=== PATIENT | female | born 2000 | race Caucasian/White ===

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

== ENCOUNTER 2022-09-04 06:10 | Emergency (ER) | payer BC, SELFPAY ==
[2022-09-04 06:13] VITALS: BP 132/83; PULSE 123; RESP 22; TEMP 36.7; O2SAT 100; BMI 31.1
--- NOTE | 2022-09-04 06:40 | CT_ITS ---
PROCEDURE INFORMATION: Exam: CT Head Without Contrast Exam date and time: 09/04/2022 6:57 AM Age: 22 years old Clinical indication: Altered mental status/memory loss; Confusion or disorientation; Additional info: Confusion, zoned out , post flu virus TECHNIQUE: Imaging protocol: Computed tomography of the head without contrast. Radiation optimization: All CT scans at this facility use at least one of these dose optimization techniques: automated exposure control; mA and/or kV adjustment per patient size (includes targeted exams where dose is matched to clinical indication); or iterative reconstruction. COMPARISON: No relevant prior studies available. FINDINGS: Brain: Normal. No hemorrhage. Unremarkable white matter. No mass effect. Cerebral ventricles: No ventriculomegaly. Paranasal sinuses: Mild mucoperiosteal thickening of the paranasal sinuses. Mastoid air cells: Visualized mastoid air cells are well aerated. Bones/joints: Unremarkable. No acute fracture. Soft tissues: Unremarkable. IMPRESSION: Mild mucoperiosteal thickening of the paranasal sinuses but no evidence of acute intracranial pathology.
--- NOTE | 2022-09-04 06:42 | ECG_ITS ---
APPROVED REPORT Exam: Resting ECG HR:92 bpm ECG Measurements Heart Rate 92 AXES ND 153 P 69 QRSd 94 QRS 60 QT 324 T 59 QTc 373 Conclusion SINUS RHYTHM WITH SINUS ARRHYTHMIA NORMAL ECG UNCONFIRMED REPORT Electronically signed by : Edmar eL MD 09/05/2022 09:34:49
[2022-09-04 06:47] LABS: Microscopic, Urine URINE MICROSCOPIC (MICROSCOPIC)
[2022-09-04 06:48] LABS: Appearance,Urine CLEAR (Clear); Bilirubin,Urine Negative (Negative); Blood, Urine 1+ (Negative); Color,Urine YELLOW (Yellow); Glucose,Urine (UA) Negative (Negative); Ketones,Urine Negative (Negative); Leukocyte Esterase,Urine Negative (Negative); Nitrate,Urine Negative (Negative); PH,Urine 5.5 (5.0-8.5); Protein,Urine Negative (Negative); Specific Gravity, Urine >= 1.030 (1.005-1.030); Urobilinogen,Urine 0.2 EU/dl (0.2)
[2022-09-04 06:50] LABS: Urine Pregnancy, HCG Qual. Negative (Negative)
--- NOTE | 2022-09-04 06:58 | XR_ITS ---
PROCEDURE INFORMATION: Exam: XR Chest Exam date and time: 09/04/2022 7:23 AM Age: 22 years old Clinical indication: Shortness of breath; Additional info: Chest tightness TECHNIQUE: Imaging protocol: Radiologic exam of the chest. Views: 2 views. COMPARISON: No relevant prior studies available. FINDINGS: Lungs: Unremarkable. No consolidation. Pleural spaces: Unremarkable. No pleural effusion. No pneumothorax. Heart/Mediastinum: Unremarkable. No cardiomegaly. Bones/joints: Unremarkable. IMPRESSION: No acute findings.
[2022-09-04 07:00] LABS: Bacteria,Urine Trace /lpf; RBC,Urine Occasional #/hpf (0-3); WBC,Urine Occasional #/hpf (0-3)
[2022-09-04 07:01] LABS: Barbiturates Screen,Urine Negative ng/ml (<200)
[2022-09-04 07:02] LABS: Benzodiazepines Screen,Urine Negative ng/ml (<200)
[2022-09-04 07:03] LABS: Amphetamine/Metha Screen,Urine Negative ng/ml (<1000); Methadone Screen,Urine Negative ng/ml (<300)
[2022-09-04 07:04] LABS: Cannabinoid Screen,Urine Negative ng/ml (<50); Cocaine Screen,Urine Negative ng/ml (<300)
[2022-09-04 07:05] LABS: Eosinophils # 0.1 K/mm3 (0.0-0.4); Eosinophils % 2.2 % (0.1-12.0); Hematocrit 41.3 % (37.0-47.0); Hemoglobin 13.8 g/dL (12.2-16.2); Lymphocytes # 1.5 K/mm3 (0.7-4.5); Lymphocytes % 37.8 % (10-50); Mean Corpuscular HGB Conc 33.3 g/dL (31.8-35.4); Mean Corpuscular Hemoglobin 29.6 pg (27.0-31.2); Mean Corpuscular Volume 88.9 fl (81-99); Mean Platelet Volume 7.5 fl (7.4-10.4); Monocytes # 0.2 K/mm3 (0.1-1.0); Monocytes % 5.7 % (1.7-9.3); Neutrophils # 2.1 K/mm3 (1.8-7.8); Neutrophils % 53.3 % (37.0-80.0); Platelet Count 321 K/mm3 (142-424); Red Blood Count 4.65 M/mm3 (4.20-5.40); Red Cell Distribution Width 12.4 % (11.5-17.5); White Blood Count 3.9 K/mm3 (4.8-10.8)
[2022-09-04 07:05] LABS: Opiate Screen,Urine Negative ng/ml (<300)
[2022-09-04 07:06] LABS: Phencyclidine Screen,Urine Negative ng/ml (<25)
[2022-09-04 07:07] LABS: Chloride 107 mmol/L (98-107); Sodium 142 mmol/L (136-145)
[2022-09-04 07:08] LABS: Potassium 3.6 mmoL/L (3.5-5.1)
[2022-09-04 07:10] LABS: Alanine Aminotransferase 16 U/L (12-78); Alkaline Phosphatase 47 U/L (38-126); Anion Gap 13.6 mEq/L (5-15); Aspartate Amino Transferase 22 U/L (14-36); Bilirubin,Direct 0.1 mg/dl (0.0-0.4); Bilirubin,Indirect 0.4 mg/dL (0.0-0.9); Bilirubin,Total 0.5 mg/dl (0.2-1.3); Bilirubin,Unconjugated 0.4 mg/dL (0.0-1.1); Blood Urea Nitrogen 9 mg/dl (7-17); Carbon Dioxide 25 mmol/L (22.0-30.0); Creatinine Clearance Estimated 131 mL/min (50-200); Estimated Glomerular Filt Rate 91 ml/min (>60); GFR (African American) 110 ML/MIN (>60)
[2022-09-04 07:11] LABS: Albumin Level 4.7 g/dl (3.5-5.0); Calcium 9.6 mg/dl (8.4-10.2); Glucose 94 mg/dl (74-100); Magnesium 1.9 mg/dl (1.6-2.3); Total Protein,Serum 7.9 g/dl (6.3-8.2)
[2022-09-04 07:12] VITALS: BP 105/65; PULSE 80; O2SAT 97
[2022-09-04 07:28] LABS: T4 (Thyroxine) 13.8 ug/dl (5.53-11.0); Troponin I < 0.01 ng/ml (0.00-0.034)
[2022-09-04 07:30] VITALS: BP 109/65; PULSE 81; O2SAT 99
[2022-09-04 07:42] LABS: Thyroid Stimulating Hormone 4.89 uIU/mL (0.465-4.68)
--- NOTE | 2022-09-04 07:46 | PC.NURSE ---
Rounded on patient. patient sitting up on side of stretcher talking with friend. She reports no needs at this time. Call light within reach
--- NOTE | 2022-09-04 07:52 | [facility].EDANX ---
Discharge Plan Disposition Patient Disposition: Home, Self-Care Prescriptions Prescriptions: New escitalopram oxalate [Lexapro] 10 mg tablet 10 mg PO DAILY Qty: 14 0RF No Action buspirone [BuSpar] 5 mg Tablet 5 mg PO TID PRN (Reason: anxitey) Referrals Follow up/Referrals: Mone Kendall PA [Primary Care Provider] - See instructions Clinical Impressions Clinical Impression: Acute anxiety Instructions Patient Instructions: Anxiety Disorders Discharge ED Provider: Bryan Adkins Anxiety HPI General Chief Complaint: Anxiety Stated Complaint: Shaking,nausea,anxiety,feels like zoning out Time Seen by Provider: 09/04/22 07:52 Mode of Arrival: Family Vehicle Source of Information: Patient, Significant Other and Medical Record Limitations: No Limitations Description of Symptoms (Recalled from ER Triage Doc. by RN): Pt c/o 5 days of feeling zoned out , anxiety, heart racing, feeling confused , and chest tightness that makes me yawn . Pt also reports she was dx with flu about 1.5 wk ago. She does have a hx of anxitey and bipolarism and takes Buspar 5 mg TIDP. She denies any cough, SOA, vision changes, or n/v/d. History of Present Illness HPI narrative: over the last week has increased anxiety with hx of same - no other c/o at this time - MD complaint: anxiety and shortness of breath Onset (ago): hour(s) Symptoms: perioral numbness/tingling Severity: moderate Place: home History of similar episodes: Yes Provoking factors: emotional stress Related Data Home Medications Medication Instructions Recorded Confirmed buspirone 5 mg tablet 5 mg PO TID PRN anxitey 09/04/22 09/04/22 Previous Rx's Medication Instructions Recorded escitalopram oxalate 10 mg tablet 10 mg PO DAILY #14 tabs 09/04/22 (Lexapro) Allergies Allergy/AdvReac Type Severity Reaction Status Date / Time No Known Allergies Allergy Unverified 03/24/20 15:45 [facility] Disclaimer: The information contained in this section may have been updated after the patient was seen, as this information can be updated by other users. Medical History (Updated 09/04/22 @ 08:01 by Bryan Adkins MD) Back Pain Bipolar disorder Social History Smoking Status: Current every day smoker alcohol intake: never substance use type: denies use current occupational status: unemployed Travel in the last 8 weeks: None number of children: 0 ROS Obtained: Yes All systems reviewed & no additional complaints except as documented Physical Exam General General appearance: alert Head Head exam: normocephalic Eye Eye exam: Present PERRL and EOMI ENT ENT exam: Present mucous membranes moist Neck Neck exam: Present trachea midline Respiratory Respiratory exam: Present normal lung sounds bilaterally; Absent respiratory distress Cardiovascular Cardiovascular exam: Present regular rate Abdominal Exam Abdominal exam: Present soft Extremities Exam Extremities exam: Present full ROM Neurological Exam Neurological exam: Present alert, oriented X3 and CN II-XII intact Psychiatric Psychiatric exam: Present normal affect Skin Skin exam: Absent rash Medical Decision Making Medical Records Medical records reviewed: Yes I reviewed the patient's medical records. Steven Inquiry Pt receiving controlled substance: No Vital Signs: 09/04/22 06:13 09/04/22 07:12 Temperature 98.1 F Temperature Source Oral Pulse Rate 80 Pulse Rate [Right] 123 H Respiratory Rate 22 Blood Pressure 105/65 L Blood Pressure [Left Arm] 132/83 Blood Pressure Mean 78 Blood Pressure Mean [Left Arm] 99 Blood Pressure Source [Left Arm] Automatic Cuff 02 Sat by Pulse Oximetry 100 97 Oxygen Delivery Method Room Air Room Air Lab Data Lab results reviewed: Yes I reviewed the patient's lab results. Lab Results 09/04/22 06:20: Urine Color Yellow, Urine Appearance Clear, Urine pH 5.5, Ur Specific Turner >= 1.030, Urine Protein Nega
[2022-09-04 08:20] VITALS: BP 109/60; PULSE 84; RESP 20; TEMP 36.7; O2SAT 98
== END 2022-09-04 08:24 | disposition home or self-care (01) ==
PROVIDERS: Emergency Provider Emergency Medicine; PCP Physician Assistant
DX: R07.89 Other chest pain (principal); M54.9 Dorsalgia, unspecified; R11.0 Nausea; F31.9 Bipolar disorder, unspecified; F41.9 Anxiety disorder, unspecified; F17.210 Nicotine dependence, cigarettes, uncomplicated
CPT/HCPCS: 70450; 71046; 80048; 80076; 80305; 81001; 81025; 83735; 84436; 84443; 84484; 85025; 93005; 96361; 96374; 99285

== ENCOUNTER → 2022-12-09 15:22 | Outpatient (CLI) | payer BC, SELFPAY ==
[2022-12-09 15:03] LABS: Alanine Aminotransferase 15 U/L (12-78); Albumin Level 4.9 g/dl (3.5-5.0); Albumin/Globulin Ratio 1.6 (1.1-1.8); Alkaline Phosphatase 57 U/L (38-126); Anion Gap 11.2 mEq/L (5-15); Aspartate Amino Transferase 25 U/L (14-36); Bilirubin,Total 0.6 mg/dl (0.2-1.3); Blood Urea Nitrogen 12 mg/dl (7-17); Calcium 9.3 mg/dl (8.4-10.2); Carbon Dioxide 26 mmol/L (22.0-30.0); Chloride 104 mmol/L (98-107); Chol/HDL Ratio 2.7 (1-3.5); Cholesterol 129 mg/dl (140-200); Estimated Glomerular Filt Rate 91 ml/min (>60); GFR (African American) 110 ML/MIN (>60); Glucose 76 mg/dl (74-100); HDL Cholesterol 47 mg/dl (40-60); Potassium 4.2 mmoL/L (3.5-5.1); Sodium 137 mmol/L (136-145); Total Protein,Serum 7.9 g/dl (6.3-8.2); Triglycerides 50 mg/dl (30-150); VLDL Cholesterol 10 mg/dL (0-40)
[2022-12-09 15:14] LABS: C-Reactive Protein 0.5 mg/L (0-4); Direct LDL Cholesterol 65.07 mg/dL (100-129)
[2022-12-09 15:17] LABS: Erythrocyte Sedimentation Rate 25 mm/hr (0-20)
[2022-12-09 15:22] LABS: Basophils # 0.1 K/mm3 (0-0.2); Eosinophils # 0.3 K/mm3 (0.0-0.4); Eosinophils % 5.4 % (0.1-12.0); Hematocrit 44.5 % (37.0-47.0); Hemoglobin 14.6 g/dL (12.2-16.2); Lymphocytes # 1.7 K/mm3 (0.7-4.5); Mean Corpuscular HGB Conc 32.8 g/dL (31.8-35.4); Mean Corpuscular Hemoglobin 30.7 pg (27.0-31.2); Mean Corpuscular Volume 93.6 fl (81-99); Mean Platelet Volume 8.6 fl (7.4-10.4); Monocytes # 0.3 K/mm3 (0.1-1.0); Neutrophils % 55.7 % (37.0-80.0); Platelet Count 386 K/mm3 (142-424); Red Blood Count 4.76 M/mm3 (4.20-5.40); Red Cell Distribution Width 12.8 % (11.5-17.5); White Blood Count 5.4 K/mm3 (4.8-10.8)
[2022-12-09 15:35] LABS: Thyroid Stimulating Hormone 2.65 uIU/mL (0.465-4.68)
[2022-12-09 15:54] LABS: Vitamin B12 362 pg/mL (239-931)
[2022-12-11 09:17] LABS: RA Latex Turbid. <10.0 IU/mL (<14.0)
[2022-12-11 14:08] LABS: Anti-Cyclic Citrullinated Pept 4 units (0-19)
[2022-12-11 16:10] LABS: Anti-Centromere B Antibodies <0.2 AI (0.0-0.9); Anti-DNA (DS) Ab Qn <1 IU/mL (0-9); Anti-Jo-1 <0.2 AI (0.0-0.9); Anti-Smith Antibody <0.2 AI (0.0-0.9); Antichromatin Antibodies <0.2 AI (0.0-0.9); Antiscleroderma-70 Antibodies <0.2 AI (0.0-0.9); RNP Antibodies 0.4 AI (0.0-0.9); Sjogren's Anti-SS-A <0.2 AI (0.0-0.9); Sjogren's Anti-SS-B <0.2 AI (0.0-0.9)
== END ==
PROVIDERS: PCP Physician Assistant; Visit Provider Physician Assistant
DX: M25.50 Pain in unspecified joint (principal); F31.32 Bipolar disorder, current episode depressed, moderate; I73.00 Raynaud's syndrome without gangrene; E66.3 Overweight; Z68.30 Body mass index [BMI] 30.0-30.9, adult
CPT/HCPCS: 80053; 80061; 82306; 82607; 84443; 85025; 85651; 86140; 86200; 86225; 86235; 86431